=== PATIENT | female | born 1975 | race Caucasian/White ===

== ENCOUNTER 2018-09-19 20:57 | Inpatient (IN) ==
[2018-09-19] MEDS ORDERED: NS 1,000 ML IV ONE ×2 (21:42→22:41)
[2018-09-19] MEDS ORDERED: MORPHINE IV ONE (21:42)
[2018-09-19] MEDS ORDERED: REGLAN IV ONE (21:42)
[2018-09-19 21:44] LABS: BILIRUBIN URINE NEGATIVE (NEGATIVE); BLOOD URINE NEGATIVE (NEGATIVE); CLARITY SL. CLOUDY (CLEAR); COLOR YELLOW; GLUCOSE URINE NEGATIVE (NEGATIVE); KETONE URINE TRACE mg/dL (NEGATIVE); LEUKOCYTES URINE TRACE (NEGATIVE); NITRITE URINE NEGATIVE (NEGATIVE); PROTEIN URINE 1+(30 mg/dL) mg/dL (NEGATIVE); UROBILINOGEN URINE NORMAL
[2018-09-19 21:46] LABS: URINE BACTERIA 4+ /HFP
[2018-09-19 21:47] LABS: URINE EPITHELIAL CELLS <10 /HPF (<10); URINE RBC <10 /HPF (<10); URINE SOURCE CLEAN CATCH; URINE WBC <10 /HPF (<10)
[2018-09-19 21:57] LABS: BASO# 0.03 X1000 (0.0-0.2); BASO% 0.1 % (0.0-0.8); EOS# 0.04 X1000 (0.0-0.7); EOS% 0.2 % (0.0-10.0); HEMATOCRIT 43.7 % (37.0-47.0); HEMOGLOBIN 14.8 g/dL (12.0-16.0); IMM GRAN% 1.3 % (0.0-0.5); LYMPH% 14.5 % (20.5-51.1); MCH 31.4 PG (27-31); MCHC 33.9 g/dL (33-37); MCV 92.8 FL (81-99); MONO% 5.1 % (1.7-9.3); MPV 9.8 FL (7.4-10.4); NEUT# 18.49 X1000 (1.4-6.5); NEUT% 78.8 % (42.2-75.2); PLT 358 X1000 (130-400); RBC 4.71 XMIL (4.2-5.4); RDW 13.7 % (11.5-14.5); WBC 23.46 X1000 (4.8-10.8)
[2018-09-19 22:12] LABS: ALBUMIN 4.9 g/dL (3.5-5.0); CALCIUM 9.9 mg/dL (8.8-10.2); POTASSIUM 5.3 mmol/L (3.5-5.1); TOTAL BILIRUBIN 0.4 mg/dL (0.20-1.00)
[2018-09-19] MEDS ORDERED: BENADRYL IV ONE (22:46)
--- NOTE | 2018-09-20 00:08 | PROVIDER DOCUMENTATION ---
This chart was entered by Liset Goldstein Scribe, acting as scribe for Preet Quinteros MD. HPI-General Adult - General Chief Complaint: Abdominal Pain Stated Complaint: VOMITING Time Seen by Provider: 09/19/18 21:24 Source: patient Allergies/Adverse Reactions: Patient Allergies Allergy/AdvReac Type Severity Reaction Status Date / Time erythromycin base AdvReac RASH Verified 03/09/18 23:21 Home Medications: Home Medication List Medication Instructions Recorded Confirmed Last Taken Type Albuterol Sulfate Inhaler 1 puff INH PRN PRN 09/19/18 09/19/18 Unknown History [Ventolin Hfa] Cetirizine HCl [Zyrtec] 10 mg PO DAILY 09/19/18 09/19/18 Unknown History Citalopram [Celexa] 20 mg PO DAILY 09/19/18 09/19/18 Unknown History Fluticasone/Salmeterol 115/21 1 puff INH PRN PRN 09/19/18 09/19/18 Unknown History [Advair Hfa Inhaler] Gabapentin 800 mg PO TID 09/19/18 09/19/18 Unknown History Levothyroxine [Synthroid] 100 mcg PO DAILY 09/19/18 09/19/18 Unknown History Lisinopril 20 mg PO DAILY 09/19/18 09/19/18 Unknown History Montelukast [Singulair] 10 mg PO DAILY 09/19/18 09/19/18 Unknown History Omeprazole [Prilosec] 40 mg PO DAILY 09/19/18 09/19/18 Unknown History Varenicline Tartrate [Chantix] 100 mg PO BID 09/19/18 09/19/18 Unknown History - History of Present Illness -Gen Adult Nature of Presenting Problems: pt is a 43 yr old female presenting with 1 day complaint of nausea, vomiting, abdominal cramping/pain, leg cramps, headache runny nose and ears popping. Location of Pain/Injury: reports: abdomen, lower extremity (bilateral legs) Pain Radiation: reports: no radiation Quality of Pain: reports: cramping, sharp Severity: reports: severe Onset/Duration: reports: this morning Timing: reports: still present, changing over time, getting worse Context/Activities at Onset: reports: rest Modifying Factors: improves with: movement (standing/moving improves pain) Associated Symptoms: reports: EENT symptoms, headaches, nausea, vomiting, other (abdomianl pain). denies: back/neck pain, chest pain, fever/chills, genitourinary problems, shortness of breath, trouble walking Similar Symptoms Previously?: No Recently seen or treated by another doctor?: No Review of Systems - Adult - REVIEW OF SYSTEMS - ADULT Constitutional: denies: chills, fever, fatique Eyes: reports: eye pain (burning). denies: decreased vision, blurred vision, double vision Ears, Nose, Mouth & Throat: reports: ear pain (popping), sinus problem (runny nose). denies: throat pain Cardiovascular: denies: chest pain, palpitations, syncope Respiratory: denies: cough, shortness of breath Gastrointestinal: reports: abdominal pain, nausea, vomiting. denies: diarrhea Genitourinary: denies: dysuria, frequency, urinary retention Musculoskeletal: reports: frequent leg cramps, muscle aches. denies: back pain, neck pain Integumentary: reports: no symptoms reported Neurological: reports: dizziness/vertigo, headache/migraines. denies: syncope Psychiatric: reports: no symptoms reported Endocrine: reports: no symptoms reported Hematologic/Lymphatic: reports: no symptoms reported Allergic/Immunologic: reports: no symptoms reported All Other Systems: Reviewed and Negative Past History - Adult - PAST MEDICAL HISTORY-ADULT Review of Records: reports: Old Records Reviewed, Nursing Assessment Review, Medications Reviewed, Social history reviewed & non-contributory. Major Childhood Illnesses: reports: denies history Cardiovascular: reports: denies history Respiratory: reports: denies history Gastrointestinal: reports: denies history Obstetrical/Gynecological: reports: denies history Genitourinary: reports: denies history Musculoskeletal: reports: denies history Neurological: reports: denies history Endocrine/Immune: reports: denies history Other Conditions: reports: denies history - PRIOR SURGERIES/PROCEDURES Surgical/Procedure History: reports: cholecystectomy, hysterectomy, (x2), hernia repair - IMMUNIZATION STATUS Childhood Immunizations: See Nurse Assessment Flu Vaccine: See Nurse Assessment - FAMILY HISTORY Family History: reviewed, not pertinent - SOCIAL HISTORY Smoking: quit less than 1 year Substance Use: denies Living Situation: family Physical Exam-General - PHYSICAL EXAM-ADULT Initial Vital Signs Reviewed: Yes - CONSTITUTIONAL General Appearance: alert, mild distress, obese - EYES Eyes: PERRL/EOMI - HEAD, EARS, NOSE, MOUTH & THROAT HENMT: normocephalic/atraumatic, moist mucous membranes, normal ENT inspection - NECK Neck: non-tender, full range of motion, supple, normal inspection - RESPIRATORY Respiratory: chest non-tender, lungs clear, normal breath sounds - CARDIOVASCULAR Cardiovascular: normal peripheral pulses, regular rate, rhythm, no edema - GASTROINTESTINAL (ABDOMEN) Abdominal Exam: normal bowel sounds, soft, tenderness (LUQ tenderness) - LYMPHATIC Lymphatic: no adenopathy - MUSCULOSKELETAL Back Exam: normal inspection, no CVA tenderness, no vertebral tenderness Extremity: normal range of motion, non-tender, normal gait, normal inspection - SKIN Integumentary: normal color, normal turgor, warm/dry - NEUROLOGIC Neurologic: grossly normal, no motor/sensory deficits - PSYCHIATRIC Psych/Mental Status: normal mood/affect Progress - PLAN OF CARE/RESULTS Progress/Plan/Lab Results: Vital Signs - 8 hr 09/19/18 21:09 Temperature 97.5 F L Pulse Rate 96 H Respiratory Rate 20 Blood Pressure 148/110 O2 Sat by Pulse Oximetry 91 L Laboratory Results - last 24 hr 09/19/18 09/19/18 21:26 21:44 WBC 23.46 H RBC 4.71 Hgb 14.8 Hct 43.7 MCV 92.8 MCH 31.4 H MCHC 33.9 RDW Std Deviation 13.7 Plt Count 358 MPV 9.8 Immature Gran % (Auto) 1.3 H Neut % (Auto) 78.8 H Lymph % (Auto) 14.5 L [place] % (Auto) 5.1 Eos % (Auto) 0.2 Baso % (Auto) 0.1 Immature Gran # (Auto) 0.30 H Neut # (Auto) 18.49 H Lymph # (Auto) 3.40 [place] # (Auto) 1.20 H Eos # (Auto) 0.04 Baso # (Auto) 0.03 Urine Source CLEAN CATCH Urine Color YELLOW Urine Clarity SL. CLOUDY A Urine pH 5.0 Ur Specific Edwards 1.020 Urine Protein 1+(30 mg/dL) A Urine Ketones TRACE Urine Blood NEGATIVE Urine Nitrite NEGATIVE Urine Bilirubin NEGATIVE Urine Urobilinogen NORMAL Urine Microscopic RBC <10 Urine WBC TRACE A Urine Microscopic WBC <10 Ur Epithelial Cells <10 Urine Bacteria 4+ Urine Glucose NEGATIVE Orders Category Date Time Status Saline Loc DIRECTED Care 09/19/18 21:23 Active NPO Diet 09/19/18 21:[address] ABD/PELVIS W/IV CONT ONLY [CT] Stat Exams 09/19/18 21:42 Ordered AMYLASE [CHEM] Stat Lab 09/19/18 21:44 Received CBC WITH ELECTRONIC DIFF [HEME] Stat Lab 09/19/18 21:44 Completed COMPREHENSIVE METABOLIC PANEL [CHEM] Stat Lab 09/19/18 21:44 Received LIPASE [CHEM] Stat Lab 09/19/18 21:[address] W/POSS RFLX CULT [URINALYSIS] Stat Lab 09/19/18 21:26 Completed URINE CULTURE [RM] Routine Lab 09/19/18 21:47 Ordered 0.9% Sodium Chloride Inj [Ns] 1,000 ml Med 09/19/18 21:42 Active IV 999 mls/hr Metoclopramide [Reglan] Med 09/19/18 21:42 Discontinued 10 mg IV NOW ONE Morphine Med 09/19/18 21:42 Discontinued 4 mg IV NOW ONE Result Diagrams: 09/19/18 21:44 09/19/18 21:44 - CT/MRI 1 CT Study: Abdomen, Pelvis Impression: Abnormal (multifocal supraumbilical hernias, these contain only fat) - CONSULTS/PCP/HOSPITALIST Notification #1 *Consult/PCP/Hospitalist*: Dr Mcneill Time Discussed: 00:05 Reason/Comments: plan of care for pt admit Consult Disposition: Admit Departure - Departure Date of Disposition Decision: 09/19/18 Time of Disposition Decision: 22:42 DIAGNOSIS: Acute kidney injury Abdominal pain Qualifiers: Abdominal location: generalized Qualified Code(s): R10.84 - Generalized abdominal pain Vomiting Qualifiers: Vomiting type: unspecified Vomiting Intractability: non-intractable Nausea presence: with nausea Qualified Code(s): R11.2 - Nausea with vomiting, unspecified Disposition: ADMITTED INPATIENT 09 Certified Medical Emergency: Emergent Condition: Good Referrals and Follow-Ups: None,PCP [Primary Care Provider] - - Critical Care Note This patient required my direct & personal management of CC.: No Attestation - Physician/ ZAIN Attestation Patient care was provided by Advanced Practice Provider:: No The physician spent face to face time with patient:: Yes Advanced Practice Provider documentation review:: Supervising physician onsite and consulted in the evaluation and care of this patient. The physician did have a face to face encounter with the patient. This chart was documented by the indicated scribe, (Liset Goldstein Scribe) and accurately reflects the services I performed and decisions made by me, Preet Quinteros MD, as attested by the provider's signature.
[2018-09-20] MEDS ORDERED: ZOFRAN IV PRN (00:24)
[2018-09-20] MEDS ORDERED: MORPHINE IV PRN (00:24)
[2018-09-20] MEDS ORDERED: NS 1,000 ML IV ONE (00:24)
[2018-09-20] MEDS ORDERED: DILAUDID IV ONE (01:13)
[2018-09-20] MEDS ORDERED: DILAUDID IV PRN (01:13)
[2018-09-20 06:07] VITALS: BP 104/53
[2018-09-20 07:20] LABS: BASO# 0.02 X1000 (0.0-0.2); BASO% 0.1 % (0.0-0.8); EOS# 0.23 X1000 (0.0-0.7); EOS% 1.4 % (0.0-10.0); HEMATOCRIT 38.6 % (37.0-47.0); HEMOGLOBIN 12.7 g/dL (12.0-16.0); IMM GRAN# 0.09 X1000 (0.0-0.04); IMM GRAN% 0.6 % (0.0-0.5); LYMPH# 5.21 X1000 (1.2-3.4); LYMPH% 32.4 % (20.5-51.1); MCH 31.1 PG (27-31); MCHC 32.9 g/dL (33-37); MCV 94.6 FL (81-99); MONO% 6.8 % (1.7-9.3); MPV 9.8 FL (7.4-10.4); NEUT# 9.45 X1000 (1.4-6.5); NEUT% 58.7 % (42.2-75.2); PLT 291 X1000 (130-400); RBC 4.08 XMIL (4.2-5.4); RDW 13.7 % (11.5-14.5)
[2018-09-20 07:32] LABS: AGAP 9; BUN 18 mg/dL (8-22); CALCIUM 8.3 mg/dL (8.8-10.2); CHLORIDE 107 mmol/L (98-107); COSMO 275; CREATININE 0.9 mg/dL (0.5-0.9); ESTIMATED GFR > 60; GLUCOSE 79 mg/dL (70-104); POTASSIUM 4.5 mmol/L (3.5-5.1); SODIUM 137 mmol/L (136-145); TCO2 21 mmol/L (25-35)
--- NOTE | 2018-09-20 07:52 | Diag Imaging Result Doc PS360 ---
EXAM: CT ABDOMEN/PELVIS W/O CONTRAST HISTORY: abd pain TECHNIQUE: CT abdomen and pelvis without contrast COMPARISON: 03/09/2018 FINDINGS: The gallbladder has been removed. Normal noncontrasted liver, spleen, pancreas, and adrenal glands. No perinephric inflammation. No renal stones. No hydronephrosis. Normal aorta. There are multiple fat filled anterior abdominal hernias. No bowel loops within these. No bowel obstruction. Normal appendix. No abscess. No ascites. The urinary bladder is moderately distended and is normal. The uterus has been removed. No pelvic mass. Moderate degenerative changes throughout the lumbar spine. IMPRESSION: 1.Cholecystectomy 2.Hysterectomy 3.Anterior abdominal fat filled hernias 4.A preliminary report was given at 11:52 PM on 09/19/2018 This exam was performed using automated exposure control, adjustment of mA or kV according to patient size, and/or use of iterative reconstruction technique. Electronically signed by Malcom Lemus 09/20/2018 7:50 AM
[2018-09-20] MEDS ORDERED: BENADRYL IV PRN (08:02)
[2018-09-20] MEDS ORDERED: ADVAIR HFA 115/21 INHALER INH PRN (08:16)
[2018-09-20] MEDS ORDERED: VENTOLIN HFA INH PRN (08:16)
[2018-09-20] MEDS ORDERED: PRILOSEC PO SCH (08:45)
--- NOTE | 2018-09-20 08:58 | HISTORY AND PHYSICAL ---
PRIMARY CARE PHYSICIAN: MIKA Michael. CHIEF COMPLAINT: Nausea, vomiting, abdominal pain, headache, and bilateral lower extremity cramping for the past couple of days, that had progressively worsened. HISTORY OF PRESENTING ILLNESS: This is a 43-year-old, morbidly obese, female who presents to [facility] ER with complaints of nausea, vomiting, generalized abdominal pain, headache, bilateral lower extremity muscle cramping over the past couple of days, that had progressively worsened. Workup in the emergency room showed a white blood cell count of 23.46. BUN was 24 with a creatinine of 2.0. We did do a CT of the abdomen and pelvis that showed a cholecystectomy, hysterectomy, anterior abdominal fat-filled hernias, but no other acute findings, so she was admitted for further evaluation and treatment. PAST MEDICAL HISTORY: 1. Hypertension. 2. Hypothyroidism. 3. COPD. 4. Depression. 5. GERD. 6. IBS. 7. Chronic back pain. PAST SURGICAL HISTORY: 1. Cholecystectomy. 2. x2. 3. Hernia repair. 4. Hysterectomy. FAMILY HISTORY: Reviewed and noncontributory. SOCIAL HISTORY: She currently lives with family. She was a 2 pack a day smoker for the past 20+ years, but quit smoking approximately 1 month ago. Denied any alcohol or illicit drug use. ALLERGIES: Erythromycin and morphine. HOME MEDICATIONS: She takes: 1. Ventolin inhalation p.r.n. 2. Zyrtec 10 mg p.o. daily. 3. Celexa 20 mg p.o. daily. 4. Advair 60/8 one puff inhalation p.r.n. 5. Gabapentin 800 mg p.o. t.i.d. 6. Synthroid 100 mcg p.o. daily. 7. Lisinopril 20 mg p.o. daily. 8. Montelukast sodium 10 mg p.o. daily. 9. Omeprazole 40 mg p.o. daily. 10. Chantix 100 mg p.o. b.i.d. LABORATORY DATA: Showed a white blood cell count of 23.46, hemoglobin 14.8, hematocrit 43.7, platelets 358,000. This morning, her white count is down to 16.10. Sodium 136, potassium 5.3, chloride 102, CO2 19, BUN of 24, creatinine 2, glucose 122, amylase 45, lipase 14, plasma lactate 0.8. Repeat BMP this morning shows creatinine is back to normal at 0.9, and potassium is back to normal at 4.5. Urinalysis was negative except for 4+ bacteria. CT of the abdomen and pelvis showed really nonspecific findings of her cholecystectomy, hysterectomy, and some anterior abdominal fat-filled hernias. REVIEW OF SYSTEMS: She denied any fever, chills, blurred vision, dizziness, chest pain, coughing, shortness of breath. She was positive for generalized abdominal pain, nausea, vomiting, headache. Denied any constipation or diarrhea. Denied any burning or hurting with urination. Also was noted to have some bilateral lower extremity muscle cramping. PHYSICAL EXAMINATION: VITAL SIGNS: On arrival, she had a temperature of 97.5 degrees, pulse 96, respirations 20, blood pressure was 148/110, saturating 91% on room air. Currently, blood pressure is down to 104/53, saturating 96% on room air. GENERAL: This is a 43-year-old, morbidly obese female who is sitting up in the bed, answers questions appropriately. HEENT: Normocephalic, atraumatic. Normal ENT inspection. Oropharynx and nares are clear. Pupils are equal, round, and reactive to light and accommodation. Extraocular movements are intact. NECK: Normal inspection. Normal range of motion. LUNGS: Clear to auscultation bilaterally with equal lung expansion and chest wall movement. HEART: Regular rate and rhythm. No murmurs, rubs, or gallops. ABDOMEN: Soft, nontender, nondistended. Bowel sounds are present x4 quadrants. MUSCULOSKELETAL: She has 5/5 strength x4 extremities. NEUROLOGICAL: Cranial nerves 2 through 12 appear grossly intact. ASSESSMENT: 1. Gastroenteritis with nausea and vomiting. 2. Leukocytosis, most likely reactive. 3. Acute kidney injury. 4. Tobacco abuse. PLAN: She was admitted to the medical unit and was held n.p.o. initially. She now states that she has had no further nausea or vomiting since receiving antiemetic in the emergency room. No further abdominal pain. No further muscle cramping. So, we are going to advance her to a clear liquid diet. If she holds that down, we will advance it on up as she tolerates it. Urine culture and blood cultures x2 are pending. We gave her normal saline at 200 mL/hour and that has completed. She did receive 2 normal saline 1000 mL boluses in the emergency room also. She has Dilaudid 0.5 mg IV every 3 to 4 hours p.r.n. for pain, but I am going to stop that as well as she is not having any further pain. Hopefully, as we advance her diet and she tolerates well, and her acute kidney injury has resolved, she may possibly be able to be discharged home later this afternoon. Further orders will be after being seen by Attending. Dictated by MIKA Rich for Kennedy Rollins MD cc: MIKA Rich MD Kim Woods, CRNP
[2018-09-20] MEDS ORDERED: ZYRTEC PO SCH (09:00)
[2018-09-20] MEDS ORDERED: SINGULAIR PO SCH (09:00)
[2018-09-20] MEDS ORDERED: PRINIVIL PO SCH (09:00)
[2018-09-20] MEDS ORDERED: SYNTHROID PO SCH (09:00)
[2018-09-20] MEDS ORDERED: NEURONTIN PO SCH (09:00)
[2018-09-20] MEDS ORDERED: CELEXA PO SCH (09:00)
[2018-09-20] MEDS ORDERED: CHANTIX PO SCH (09:00)
[2018-09-20] MEDS ORDERED: TYLENOL PO PRN (09:46)
== END 2018-09-20 11:55 | disposition home or self-care (01) | DRG 683 ==
LOC: P.ED 20:57 → P.MEDSURG 09-20 01:47
PROVIDERS: ATTEND Internal Medicine
CPT/HCPCS: 74176; 80048; 80053; 81001; 82150; 83605; 83690; 85025; 87040; 87088; 96361; 96374; 96375; 99285; A9270; J1170; J1200; J2270; J2405; J2765; J7030